=== PATIENT | male | born 1990 | race Caucasian/White ===

== ENCOUNTER 2016-09-19 19:46 | Emergency (ER) | payer OTHER ==
[2016-09-19 20:03] VITALS: BP 134/70; PULSE 74; TEMP 98.6; BMI 26.4
--- NOTE | 2016-09-19 20:44 | PDOC ---
History of Present Illness - General Chief Complaint: Injury Stated Complaint: INJURY Time Seen by Provider: 09/19/16 20:05 - History of Present Illness Initial Comments: 09/19/16 20:43 CHIEF COMPLAINT: laceration HISTORY OF PRESENT ILLNESS: 26 yo M with no PMH presents to fast track with laceration to left anterior beasley s/p accident at gym. Patient states he hit his leg "about 6 hours ago and it hasn't stopped bleeding." No recent travel or sick contacts. ALLERGIES: No known drug allergies REVIEW OF SYSTEMS General/Constitutional: Denies fever or chills. Denies weakness, weight change. Musculoskeletal: Denies joint or muscle swelling or pain. Denies neck or back pain. Skin: Cut to left leg. Denies rash or easy bruising. PHYSICAL EXAM General Appearance: Well-appearing, appropriately dressed. HEENT: EOMI, PERRLA. Respiratory/Chest: Lungs CTAB. Cardiovascular: RRR. S1, S2. Musculoskeletal/Extremities: Normal inspection. FROM of all extremities, normal capillary refill. Pelvis Stable. No CVA tenderness. No tenderness to extremities, pedal edema, swelling, erythema or deformity. Integumentary: 1 cm lac to anterior beasley. Appropriate color, dry, warm. 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 Fully oriented, alert. Appropriate mood/affect. Motor strength 5/5. No appreciable EOM palsy, facial droop or sensory deficit. Past History - Past Medical History Allergies/Adverse Reactions: Allergies Allergy/AdvReac Type Severity Reaction Status Date / Time No Known Allergies Allergy Verified 09/19/16 20:00 Home Medications: Ambulatory Orders NK [No Known Home Medication] 09/19/16 Other medical history: denies - Psycho/Social/Smoking Cessation Hx Suicidal Ideation: No Smoking History: Never smoked *Physical Exam - Vital Signs Last Vital Signs Temp Pulse Resp BP Pulse Ox 98.6 F 74 18 134/70 97 09/19/16 20:00 09/19/16 20:00 09/19/16 20:00 09/19/16 20:00 09/19/16 20:00 Procedures - Consent Consent obtained: Verbal - Laceration/Wound Repair Left Anterior Leg Wound Length: to 2.5 cm Wound Explored: clean, no foreign body present Wound's Depth, Shape: superficial Irrigated w/ Saline: Yes Betadine Prep: Yes Anesthesia: 1% Lidocaine Amount of Anesthetic (ccs): 1 Wound Repaired With: Sutures Suture Size/Type: 4:0 Number of Sutures: 1 Layer Closure: No *DC/Admit/Observation/Transfer Diagnosis at time of Disposition: Laceration - Discharge Dispostion Disposition: HOME Condition at time of disposition: Stable Admit: No - Patient Instructions Printed Discharge Instructions: DI for Suture Removal Additional Instructions: Please keep clean and dry for the next 24 hours. Afterwards you may wash gently with mild soap and water. Please return for suture removal in 10-14 days. If you experience redness, swelling, warmth, streaking, fever, nausea, vomiting, diarrhea, or any other new or worsening symptoms, please return to the ER.
== END 2016-09-19 20:47 | disposition home or self-care (01) ==
LOC: JERFT 19:46
PROC: 0HQLXZZ Repair Left Lower Leg Skin, External Approach (ICD-10-PCS; principal; 2016-09-19)
DX: S81.812A Laceration without foreign body, left lower leg, initial encounter (principal); W22.8XXA Striking against or struck by other objects, initial encounter; Y93.39 Activity, other involving climbing, rappelling and jumping off; Y92.39 Other specified sports and athletic area as the place of occurrence of the external cause; Y99.8 Other external cause status
CPT/HCPCS: 99281-25